=== PATIENT | female | born 1990 | race Asian ===

== ENCOUNTER 2017-11-17 20:30 | Emergency (ER) | payer OTHER ==
[~2017-11-17] VITALS: Ht 152.4 cm; Wt 68.2 kg
[~2017-11-17 20:30] MED LIST: ARIP5TAB8 PO
[2017-11-17 20:32] VITALS: BP 111/64
[2017-11-17] MEDS ORDERED: PALI234D IM (20:47)
[2017-11-17] MEDS ORDERED: CHOL200016 PO (20:48)
[2017-11-17] MEDS ORDERED: LEVO50 PO (20:48)
[2017-11-17 21:41] LABS: BASOPHILS % (AUTO) 0.4 % (0.0-2.0); EOSINOPHILS % (AUTO) 1.3 % (1.0-6.0); HEMATOCRIT 40.6 % (36-46); HEMOGLOBIN 14.5 g/dL (12.0-16.0); LYMPHOCYTES # (AUTO) 2.7 K/uL (1.0-4.8); LYMPHOCYTES % (AUTO) 24.2 % (22.0-44.0); MEAN CORPUSCULAR HEMOGLOBIN 30.6 pg (26.0-34.0); MEAN CORPUSCULAR HGB CONC 35.8 G/dL (31.0-37.0); MEAN CORPUSCULAR VOLUME 86 fL (80-100); MONOCYTES # (AUTO) 0.8 K/uL (0.1-1.0); MONOCYTES % (AUTO) 7.5 % (2.0-9.0); NEUTROPHILS # (AUTO) 7.3 K/uL (1.8-7.7); NEUTROPHILS % (AUTO) 66.6 % (40.0-70.0); PLATELET COUNT (AUTO) 369 K/uL (150-450); RED BLOOD CELL COUNT(AUTO) 4.74 MIL/uL (4.00-5.20); RED CELL DISTRIBUTION WIDTH 12.4 % (11.5-14.5)
[2017-11-17 21:52] LABS: ANION GAP 9 mmol/L (8-16); CALCIUM, TOTAL 8.2 mg/dL (8.8-10.5); CARBON DIOXIDE 26 mmol/L (22-29); CHLORIDE 104 mmol/L (98-107); CREATININE 0.81 mg/dL (0.60-1.30); GLOMERULAR FILTR. RATE CALC > 60 mL/min (>60); GLUCOSE,RANDOM 95 mg/dL (70-110); POTASSIUM 3.6 mmol/L (3.5-5.1); SODIUM SERUM 139 mmol/L (136-145); UREA NITROGEN, BLOOD 6 mg/dL (7-18)
[2017-11-17 21:59] LABS: ALANINE AMINOTRANSFERASE 29 U/L (12-78); ALBUMIN 3.6 g/dL (3.4-5.0); ALKALINE PHOSPHATASE 95 U/L (46-116); ASPARTATE AMINOTRANSFERASE 19 U/L (15-37); BILIRUBIN,TOTAL 0.3 mg/dL (0.1-1.0)
[2017-11-17 23:23] LABS: AMPHET/METH SCREEN,URINE NEGATIVE (NEGATIVE); BARBITURATE SCREEN, URINE NEGATIVE (NEGATIVE); BENZODIAZEPINES SCREEN,URINE NEGATIVE (NEGATIVE); CANNABINOID SCREEN,URINE NEGATIVE (NEGATIVE); COCAINE SCREEN,URINE NEGATIVE (NEGATIVE); METHADONE SCREEN, URINE NEGATIVE (NEGATIVE); OPIATE SCREEN,URINE NEGATIVE (NEGATIVE)
[2017-11-17 23:26] LABS: PHENCYCLIDINE SCREEN,URINE NEGATIVE (NEGATIVE)
== END 2017-11-17 23:27 | disposition left against medical advice (07) ==
LOC: EMS 20:31
DX: R45.851 Suicidal ideations (principal); Z53.21 Procedure and treatment not carried out due to patient leaving prior to being seen by health care provider
CPT/HCPCS: 36415; 80053; 80307; 85025; 99281; G0480

== ENCOUNTER 2018-12-04 11:29 | Emergency (ER) | payer OTHER ==
[~2018-12-04] VITALS: Ht 153 cm; Wt 72.7 kg
[~2018-12-04 11:29] MED LIST changes: -ARIP5TAB8 PO; +CHOL200059 PO; +LEVO50 PO; +PALI234D IM
[2018-12-04] MEDS ORDERED: PROZ10 PO (13:22)
[2018-12-04 14:13] LABS: BASOPHILS % (AUTO) 0.4 % (0.0-2.0); EOSINOPHILS % (AUTO) 0 % (1.0-6.0); HEMATOCRIT 43.5 % (36-46); HEMOGLOBIN 15.1 g/dL (12.0-16.0); LYMPHOCYTES # (AUTO) 1.1 K/uL (1.0-4.8); LYMPHOCYTES % (AUTO) 10.6 % (22.0-44.0); MEAN CORPUSCULAR HGB CONC 34.7 G/dL (31.0-37.0); MEAN CORPUSCULAR VOLUME 89 fL (80-100); MONOCYTES # (AUTO) 0.5 K/uL (0.1-1.0); NEUTROPHILS # (AUTO) 8.6 K/uL (1.8-7.7); PLATELET COUNT (AUTO) 345 K/uL (150-450); RED BLOOD CELL COUNT(AUTO) 4.88 MIL/uL (4.00-5.20); RED CELL DISTRIBUTION WIDTH 12.6 % (11.5-14.5)
[2018-12-04 14:23] LABS: ANION GAP 12 mmol/L (8-16); CALCIUM, TOTAL 9.6 mg/dL (8.8-10.5); CARBON DIOXIDE 22 mmol/L (22-29); CHLORIDE 102 mmol/L (98-107); CREATININE 0.78 mg/dL (0.60-1.30); GLOMERULAR FILTR. RATE CALC > 60 mL/min (>60); GLUCOSE,RANDOM 117 mg/dL (70-110); POTASSIUM 3.7 mmol/L (3.5-5.1); SODIUM SERUM 136 mmol/L (136-145); UREA NITROGEN, BLOOD 8 mg/dL (7-18)
[2018-12-04 14:26] LABS: AMPHET/METH SCREEN,URINE NEGATIVE (NEGATIVE); BARBITURATE SCREEN, URINE NEGATIVE (NEGATIVE); BENZODIAZEPINES SCREEN,URINE NEGATIVE (NEGATIVE); CANNABINOID SCREEN,URINE NEGATIVE (NEGATIVE); COCAINE SCREEN,URINE NEGATIVE (NEGATIVE); METHADONE SCREEN, URINE NEGATIVE (NEGATIVE); OPIATE SCREEN,URINE NEGATIVE (NEGATIVE)
[2018-12-04 14:27] LABS: PHENCYCLIDINE SCREEN,URINE NEGATIVE (NEGATIVE)
[2018-12-04 14:34] LABS: ALANINE AMINOTRANSFERASE 25 U/L (12-78); ALBUMIN 4.1 g/dL (3.4-5.0); ALKALINE PHOSPHATASE 88 U/L (46-116); ASPARTATE AMINOTRANSFERASE 24 U/L (15-37); BILIRUBIN,TOTAL 0.4 mg/dL (0.1-1.0); HCG,QUANTITATIVE < 1 mIU/mL (0-6)
[2018-12-04 14:51] VITALS: BP 133/89
== END 2018-12-04 15:00 | disposition home or self-care (01) ==
LOC: EMS 11:30
DX: F20.0 Paranoid schizophrenia (principal); F31.9 Bipolar disorder, unspecified; E03.9 Hypothyroidism, unspecified
CPT/HCPCS: 36415; 80053; 80307; 84702; 85025; 99285; G0480

== ENCOUNTER 2022-09-14 16:18 | Inpatient (IN) | payer MEDICAID, OTHER ==
[~2022-09-14] VITALS: Ht 154.9 cm; Wt 90.0 kg
[~2022-09-14 16:18] MED LIST changes: +CHOL200016 PO; -CHOL200059 PO; +FLUO10CA24 PO
[2022-09-14 17:04] LABS: BASOPHILS % (AUTO) 0.4 % (0.0-2.0); EOSINOPHILS % (AUTO) 0.8 % (1.0-6.0); HEMATOCRIT 41.4 % (36-46); HEMOGLOBIN 14.1 g/dL (12.0-16.0); LYMPHOCYTES # (AUTO) 3.2 K/uL (1.0-4.8); LYMPHOCYTES % (AUTO) 37.9 % (22.0-44.0); MEAN CORPUSCULAR HEMOGLOBIN 28.9 pg (26.0-34.0); MEAN CORPUSCULAR VOLUME 85 fL (80-100); MONOCYTES # (AUTO) 0.6 K/uL (0.1-1.0); MONOCYTES % (AUTO) 7.2 % (2.0-9.0); NEUTROPHILS # (AUTO) 4.5 K/uL (1.8-7.7); NEUTROPHILS % (AUTO) 53.7 % (40.0-70.0); PLATELET COUNT (AUTO) 345 K/uL (150-450); RED BLOOD CELL COUNT(AUTO) 4.88 MIL/uL (4.00-5.20); RED CELL DISTRIBUTION WIDTH 12.9 % (11.5-14.5)
[2022-09-14 17:10] LABS: ANION GAP 7 mmol/L (8-16); CALCIUM, TOTAL 9.5 mg/dL (8.8-10.5); CARBON DIOXIDE 28 mmol/L (22-29); CHLORIDE 101 mmol/L (98-107); CREATININE 0.85 mg/dL (0.60-1.30); GLOMERULAR FILTR. RATE CALC > 60 mL/min (>60); GLUCOSE,RANDOM 146 mg/dL (70-110); POTASSIUM 3.8 mmol/L (3.5-5.1); SODIUM SERUM 136 mmol/L (136-145); UREA NITROGEN, BLOOD 12 mg/dL (7-18)
[2022-09-14 17:24] LABS: SALICYLATE < 2.8 mg/dL (2.8-20.0)
[2022-09-14 17:25] LABS: ALANINE AMINOTRANSFERASE 83 U/L (12-78); ALBUMIN 3.8 g/dL (3.4-5.0); ALKALINE PHOSPHATASE 117 U/L (46-116); ASPARTATE AMINOTRANSFERASE 39 U/L (15-37); BILIRUBIN,TOTAL 0.2 mg/dL (0.1-1.0); HCG,QUANTITATIVE < 1 mIU/mL (0-6); THYROID STIMULATING HORMONE 1.72 uIU/mL (0.36-3.74); TOTAL PROTEIN, SERUM 8.7 g/dL (6.4-8.2)
[2022-09-14 17:26] LABS: ACETAMINOPHEN < 2 mcg/mL (10-30)
[2022-09-14 17:26] LABS: COVID AG,FIA SOURCE NASAL SWAB
[2022-09-14 18:02] LABS: AMPHET/METH SCREEN,URINE NEGATIVE (NEGATIVE); BARBITURATE SCREEN, URINE NEGATIVE (NEGATIVE); BENZODIAZEPINES SCREEN,URINE NEGATIVE (NEGATIVE); CANNABINOID SCREEN,URINE NEGATIVE (NEGATIVE); COCAINE SCREEN,URINE NEGATIVE (NEGATIVE); METHADONE SCREEN, URINE NEGATIVE (NEGATIVE); OPIATE SCREEN,URINE NEGATIVE (NEGATIVE); PHENCYCLIDINE SCREEN,URINE NEGATIVE (NEGATIVE)
[2022-09-14] MEDS ORDERED: ZOLPIDEM TARTRATE 10 MG TABLET PO PRN (18:30)
[2022-09-14] MEDS ORDERED: HALOPERIDOL 5 MG TABLET PO PRN (18:30)
[2022-09-14] MEDS: LORazepam 2 MG TABLET PO PRN (20:38)
[2022-09-14 20:48] LABS: ANION GAP 8 mmol/L (8-16); CALCIUM, TOTAL 9.1 mg/dL (8.8-10.5); CARBON DIOXIDE 26 mmol/L (22-29); CHLORIDE 102 mmol/L (98-107); CREATININE 0.82 mg/dL (0.60-1.30); GLOMERULAR FILTR. RATE CALC > 60 mL/min (>60); GLUCOSE,RANDOM 163 mg/dL (70-110); POTASSIUM 3.6 mmol/L (3.5-5.1); SODIUM SERUM 136 mmol/L (136-145); UREA NITROGEN, BLOOD 11 mg/dL (7-18)
[2022-09-14 20:54] LABS: ALANINE AMINOTRANSFERASE 77 U/L (12-78); ALBUMIN 3.6 g/dL (3.4-5.0); ALKALINE PHOSPHATASE 118 U/L (46-116); ASPARTATE AMINOTRANSFERASE 40 U/L (15-37); BILIRUBIN,TOTAL 0.2 mg/dL (0.1-1.0); TOTAL PROTEIN, SERUM 8.3 g/dL (6.4-8.2)
[2022-09-14 23:10] VITALS: BP 128/69
[2022-09-15] MEDS ORDERED: PNEUMOCOCCAL VACCINE POLYVALENT 0.5 ML VIAL [PPSV23] IM. ONE (00:15)
[2022-09-15] MEDS ORDERED: ACETAMINOPHEN 325 MG TABLET PO PRN (06:30)
[2022-09-15] MEDS ORDERED: GuaiFENesin/D-METHORPHAN [SUGAR-FREE] 200-20MG/10 ML SYRUP UDCUP PO PRN (06:30)
[2022-09-15] MEDS ORDERED: DOCUSATE SODIUM 100 MG CAPSULE PO PRN (06:30)
[2022-09-15] MEDS ORDERED: MAGNESIUM HYDROXIDE SUSPENSION 30 ML UDCUP PO PRN (06:30)
[2022-09-15] MEDS ORDERED: NICOTINE 14 MG/24 HOUR PATCH TD PRN (06:30)
[2022-09-15] MEDS ORDERED: ONDANSETRON HCL 4 MG TABLET PO PRN (06:30)
[2022-09-15] MEDS ORDERED: PETROLATUM,WHITE 28 GM JELLY TP PRN (06:30)
[2022-09-15] MEDS ORDERED: MAG HYDROX/AL HYDROX/SIMETH ES 30 ML SUSPENSION UDCUP PO PRN (06:30)
[2022-09-15] MEDS ORDERED: IBUPROFEN 400 MG TABLET PO PRN (06:30)
[2022-09-15] MEDS ORDERED: LOPERAMIDE HCL 2 MG CAPSULE PO PRN (06:30)
[2022-09-15] MEDS ORDERED: ALBUTEROL SULFATE HFA 90 MCG/PUFF 8 GM INHALER IH PRN (06:30)
[2022-09-15] MEDS ORDERED: CloNIDine HCL 0.1 MG TABLET PO PRN (06:30)
[2022-09-15 08:42] VITALS: BP 138/97
[2022-09-15] MEDS: LEVOTHYROXINE SODIUM 50 MCG TABLET PO SCH (08:51)
[2022-09-15] MEDS: NICOTINE 14 MG/24 HOUR PATCH TD SCH (08:51)
[2022-09-15] MEDS: FLUoxetine HCL 10 MG CAPSULE PO SCH (11:16)
[2022-09-15] MEDS: MetFORMIN HCL 500 MG TABLET PO SCH (13:03)
[2022-09-15] MEDS: BENZTROPINE MESYLATE 1 MG TABLET PO SCH (16:20)
[2022-09-15 17:17] VITALS: BP 228/81
[2022-09-15 20:00] VITALS: BP_SYST 105; BP_SYST 125; BP_DIAS 68; BP_DIAS 75
[2022-09-15] MEDS: HALOPERIDOL 5 MG TABLET PO SCH (20:47)
[2022-09-16] MEDS: LEVOTHYROXINE SODIUM 50 MCG TABLET PO SCH (06:58)
[2022-09-16] MEDS: MetFORMIN HCL 500 MG TABLET PO SCH (06:58)
[2022-09-16 08:04] VITALS: BP 114/76
[2022-09-16] MEDS ORDERED: PALIPERIDONE PALMITATE 234 MG/1.5 ML SYRINGE IM SCH (09:00)
[2022-09-16] MEDS: CHOLECALCIFEROL (VIT D3) 1,000 UNITS [25 MCG] TABLET PO SCH (09:05)
[2022-09-16] MEDS: NICOTINE 14 MG/24 HOUR PATCH TD SCH (09:05)
[2022-09-16] MEDS: HALOPERIDOL 10 MG TABLET PO SCH (09:05)
[2022-09-16] MEDS: FLUoxetine HCL 10 MG CAPSULE PO SCH (09:05)
[2022-09-16] MEDS: BENZTROPINE MESYLATE 1 MG TABLET PO SCH ×2 (09:05→17:08)
[2022-09-16 16:28] VITALS: BP 124/81
[2022-09-16 20:07] VITALS: BP 120/71
[2022-09-16] MEDS: HALOPERIDOL 5 MG TABLET PO SCH (20:52)
[2022-09-16] MEDS: LORazepam 2 MG TABLET PO PRN (20:53)
[2022-09-17] MEDS: MetFORMIN HCL 500 MG TABLET PO SCH (06:40)
[2022-09-17] MEDS: LEVOTHYROXINE SODIUM 50 MCG TABLET PO SCH (06:40)
[2022-09-17] MEDS: FLUoxetine HCL 10 MG CAPSULE PO SCH (08:41)
[2022-09-17] MEDS: NICOTINE 14 MG/24 HOUR PATCH TD SCH (08:42)
[2022-09-17] MEDS: CHOLECALCIFEROL (VIT D3) 1,000 UNITS [25 MCG] TABLET PO SCH (08:42)
[2022-09-17] MEDS: BENZTROPINE MESYLATE 1 MG TABLET PO SCH ×2 (08:42→16:16)
[2022-09-17] MEDS: HALOPERIDOL 10 MG TABLET PO SCH (08:42)
[2022-09-17 08:46] VITALS: BP 107/64
[2022-09-17 16:06] VITALS: BP 134/84
[2022-09-17] MEDS: HALOPERIDOL 5 MG TABLET PO SCH (20:19)
[2022-09-17 20:44] VITALS: BP 120/84
[2022-09-18] MEDS: LORazepam 2 MG TABLET PO PRN ×3 (01:08→21:23)
[2022-09-18] MEDS: LEVOTHYROXINE SODIUM 50 MCG TABLET PO SCH (06:10)
[2022-09-18] MEDS: MetFORMIN HCL 500 MG TABLET PO SCH (06:37)
[2022-09-18 08:05] VITALS: BP 125/85
[2022-09-18] MEDS: CHOLECALCIFEROL (VIT D3) 1,000 UNITS [25 MCG] TABLET PO SCH (08:13)
[2022-09-18] MEDS: BENZTROPINE MESYLATE 1 MG TABLET PO SCH ×2 (08:13→16:14)
[2022-09-18] MEDS: FLUoxetine HCL 10 MG CAPSULE PO SCH (08:13)
[2022-09-18] MEDS: HALOPERIDOL 10 MG TABLET PO SCH (08:13)
[2022-09-18] MEDS: NICOTINE 14 MG/24 HOUR PATCH TD SCH (08:15)
[2022-09-18 16:55] VITALS: BP 145/92
[2022-09-18 20:36] VITALS: BP 144/88
[2022-09-18] MEDS: HALOPERIDOL 5 MG TABLET PO SCH (21:23)
[2022-09-19] MEDS: MetFORMIN HCL 500 MG TABLET PO SCH (06:38)
[2022-09-19] MEDS: LEVOTHYROXINE SODIUM 50 MCG TABLET PO SCH (06:39)
[2022-09-19] MEDS: HALOPERIDOL 10 MG TABLET PO SCH (08:24)
[2022-09-19] MEDS: CHOLECALCIFEROL (VIT D3) 1,000 UNITS [25 MCG] TABLET PO SCH (08:24)
[2022-09-19] MEDS: BENZTROPINE MESYLATE 1 MG TABLET PO SCH ×2 (08:24→16:28)
[2022-09-19] MEDS: FLUoxetine HCL 10 MG CAPSULE PO SCH (08:26)
[2022-09-19] MEDS: NICOTINE 14 MG/24 HOUR PATCH TD SCH (08:26)
[2022-09-19 08:33] VITALS: BP 148/97
[2022-09-19 16:15] VITALS: BP 118/76
[2022-09-19] MEDS: LORazepam 2 MG TABLET PO PRN (18:08)
[2022-09-19] MEDS: HALOPERIDOL 5 MG TABLET PO SCH (21:04)
[2022-09-19 21:24] VITALS: BP 125/73
[2022-09-20] MEDS: MetFORMIN HCL 500 MG TABLET PO SCH (06:51)
[2022-09-20] MEDS: LEVOTHYROXINE SODIUM 50 MCG TABLET PO SCH (06:51)
[2022-09-20 07:04] LABS: COVID AG,FIA SOURCE NASAL SWAB
[2022-09-20] MEDS: NICOTINE 14 MG/24 HOUR PATCH TD SCH (08:21)
[2022-09-20] MEDS: HALOPERIDOL 10 MG TABLET PO SCH (08:21)
[2022-09-20] MEDS: FLUoxetine HCL 10 MG CAPSULE PO SCH (08:21)
[2022-09-20] MEDS: CHOLECALCIFEROL (VIT D3) 1,000 UNITS [25 MCG] TABLET PO SCH (08:21)
[2022-09-20] MEDS: BENZTROPINE MESYLATE 1 MG TABLET PO SCH (08:21)
[2022-09-20] MEDS ORDERED: PALIPERIDONE PALMITATE 234 MG/1.5 ML SYRINGE IM SCH (09:00)
[2022-09-20] MEDS ORDERED: BENZ1TAB96 PO (11:09)
[2022-09-20] MEDS ORDERED: HALO5TAB23 PO (11:09)
[2022-09-20] MEDS ORDERED: HALO10TA21 PO (11:09)
[2022-09-20] MEDS ORDERED: METF-1211 PO (11:12)
[2022-09-20] MEDS ORDERED: CHOL25TA4 PO (11:12)
== END 2022-09-20 16:37 | disposition home or self-care (01) | DRG 750 ==
LOC: EMS 16:18 → 3EI 21:00
PROVIDERS: ADMIT Psychiatry & Neurology Child & Adolescent Psychiatry; ATTEND Psychiatry & Neurology Child & Adolescent Psychiatry
PROC: 3E0234Z Introduction of Serum, Toxoid and Vaccine into Muscle, Percutaneous Approach (ICD-10-PCS; principal; 2022-09-15)
DX: F25.1 Schizoaffective disorder, depressive type (principal); E03.9 Hypothyroidism, unspecified; F41.9 Anxiety disorder, unspecified; F43.10 Post-traumatic stress disorder, unspecified; E55.9 Vitamin D deficiency, unspecified; R73.9 Hyperglycemia, unspecified; T50.902A Poisoning by unspecified drugs, medicaments and biological substances, intentional self-harm, initial encounter; Z20.822 Contact with and (suspected) exposure to COVID-19; Y92.89 Other specified places as the place of occurrence of the external cause; Z91.51 Personal history of suicidal behavior; Z23 Encounter for immunization
CPT/HCPCS: 80053; 80307; 83036; 83735; 84443; 84702; 85025; 93005; 99285; G0480; G0481